=== PATIENT | female | born 1995 | race Caucasian/White ===

== ENCOUNTER 2016-08-23 01:19 | Emergency (ER) | payer SELFPAY ==
[2016-08-23 01:48] LABS: PLATELET COUNT 314 x10^3mcL (130-400)
[2016-08-23 01:49] LABS: BASOPHIL % 2.9 % (0-2)
[2016-08-23 01:58] LABS: CALCIUM 8.7 mg/dL (8.5-10.1); CARBON DIOXIDE 24.6 mmol/L (21-32); CHLORIDE SERUM 106 mmol/L (98-107); CREATININE SERUM 0.8 mg/dL (0.6-1.0); GFR1 > 60 mL/min; GLUCOSE SERUM 108 mg/dL (74-106); POTASSIUM SERUM 3.6 mmol/L (3.5-5.1); SODIUM SERUM 144 mmol/L (136-145)
[2016-08-23 02:04] LABS: ALBUMIN 4.8 g/dL (3.4-5.0); ALKALINE PHOSPHATASE 75 U/L (46-116); ALT/SGPT 30 U/L (14-59); AST/SGOT 22 U/L (15-37); BILIRUBIN TOTAL 0.31 mg/dL (0.20-1.00)
[2016-08-23 02:05] LABS: TOTAL PROTEIN, SERUM 8.6 g/dL (6.4-8.2)
[2016-08-23 06:43] LABS: AMPHETAMINE QUAL UR NONE DETECTED (NEG <=1000)
[2016-08-23 07:02] VITALS: BP 105/52
== END 2016-08-23 07:02 | disposition home or self-care (01) ==
LOC: ED 01:19
PROVIDERS: Emergency Medicine
DX: F10.129 Alcohol abuse with intoxication, unspecified (principal)
CPT/HCPCS: 80307; G0480; J1630; J7030